=== PATIENT | male | born 1960 | race Caucasian/White ===

== ENCOUNTER 2020-11-30 19:24 | Emergency (ER) | payer OTHER ==
[~2020-11-30] VITALS: Ht 177.8 cm; Wt 78.0 kg
[2020-11-30] MEDS ORDERED: AMOXICILLIN500 M2 PO (20:20)
== END 2020-11-30 20:32 | disposition home or self-care (01) ==
LOC: ED 19:24
DX: K08.89 Other specified disorders of teeth and supporting structures (principal)